=== PATIENT | male | born 1965 | race Caucasian/White ===

== ENCOUNTER 2020-04-06 13:50 | Emergency (ER) | payer OTHER ==
[~2020-04-06] VITALS: Ht 188 cm; Wt 93.3 kg
--- NOTE | 2020-04-06 14:04 | NUR ---
DEVIL DOG: PER DR SARAH NO CODE NEURO
--- NOTE | 2020-04-06 14:22 | NUR ---
PATIENT WALKED BACK FROM TRIAGE WITH CHIEF C/O EPISODE OF DIZZINESS, AND BLURRY VISION THAT STARTED THIS MORNING. PATIENT STATES NOW HE HAS A "BRAND CLOUD OVER HIS LEFT EYE." PATIENT DENIES HISTORY OF NEURO ISSUES, DENIES NUMBNESS/TINGLING ANYWHERE, A&OX4, ACCOMPANIED BY . Addendum: 04/06/20 at 1433 by PAT PATIENT SEEN AT [facility] THIS MORNING AND REFERRED HERE.
[2020-04-06 14:33] LABS: HCT (SEDRATE) 42.7 % (39.2-51.8)
--- NOTE | 2020-04-06 14:34 | NUR ---
ERMD AT BEDSIDE FOR EVALUATION.
[2020-04-06 14:35] LABS: BASOPHILS % (AUTO) 1 % (0-1); EOSINOPHILS % (AUTO) 1 % (1-7); LYMPHOCYTES % (AUTO) 31 % (22-44); MEAN CORPUSCULAR HEMOGLOBIN 30.3 pg (27.5-34.5); MEAN CORPUSCULAR HGB CONC 34.5 g/dL (33.2-36.2); MEAN PLATELET VOLUME 8.1 fL (7.4-10.4); MONOCYTES % (AUTO) 10 % (2-9); NEUTROPHILS % (AUTO) 57 % (42-75); PLATELET COUNT 186 x10^3/uL (130-400); RED BLOOD COUNT 4.87 x10^6/uL (4.38-5.82); RED CELL DISTRIBUTION WIDTH 13.5 % (9.4-14.8)
[2020-04-06 14:43] LABS: ANION GAP 5 mmol/L (5-15); CHLORIDE 107 mmol/L (98-107); CREATININE 0.87 mg/dL (0.7-1.3)
[2020-04-06 14:46] LABS: MD NO
--- NOTE | 2020-04-06 14:54 | NUR ---
dr nur spoke with dr catalan
--- NOTE | 2020-04-06 15:04 | NUR ---
PATIENT TO CT SCAN.
--- NOTE | 2020-04-06 15:11 | NUR ---
TAR MAN PERFORMING VISUAL ACUITY TEST.
[2020-04-06] MEDS ORDERED: OMNIPAQUE 350 MG/ML, 100ML BOTTLE ONE (15:23)
[2020-04-06] MEDS ORDERED: TROPICAMIDE OPHTH 1%, 15ML OP ONE (16:15)
--- NOTE | 2020-04-06 16:38 | NUR ---
EYE DROPS GIVEN TO ERMD.
--- NOTE | 2020-04-06 16:54 | NUR ---
OPTHAMOLOGIST AT BEDSIDE.
--- NOTE | 2020-04-06 17:12 | NUR ---
OPTHAMOLOGIST STILL AT BEDSIDE, DISCUSSING POC.
[2020-04-06 17:35] VITALS: BP 125/89
--- NOTE | 2020-04-06 17:57 | NUR ---
Patient given discharge instructions and they have confirmed that they understand the instructions. Patient stable and ambulatory with steady gait from ED with spouse to private vehicle.
== END 2020-04-06 17:58 | disposition home or self-care (01) ==
LOC: ED 15:58
DX: G43.009 Migraine without aura, not intractable, without status migrainosus (principal); H49.9 Unspecified paralytic strabismus
CPT/HCPCS: 36415; 70450; 70496; 70498; 80048; 85025; 85651; 93005; 99285; Q9967